=== PATIENT | male | born 1945 | race Caucasian/White ===

== ENCOUNTER → 2016-10-23 | Outpatient (CLI) | payer OTHER ==
[~2016-10-23] MED LIST: CALCIUM 500 +1 EACH PO; CELEXA20 MG PO; FIORICET WI1 CAPSULE PO; MAALOX/LIDOCAINE; OXAYDO5 MG PO; OXYCODONE-ACET1 EACH PO; PROSCAR5 MG PO; VITAMIN B122500 MCG PO; VITAMIN D31000 UNIT PO
== END | disposition home or self-care (01) ==
LOC: NUC 11:00
DX: C61 Malignant neoplasm of prostate (principal); C79.51 Secondary malignant neoplasm of bone; R97.21 Rising PSA following treatment for malignant neoplasm of prostate
CPT/HCPCS: 78306; A9503

== ENCOUNTER → 2017-04-24 | Outpatient (CLI) | payer OTHER | END | disposition home or self-care (01) | LOC: NUC 10:43 | DX: C79.51 Secondary malignant neoplasm of bone (principal) | CPT/HCPCS: 78306; A9503 ==

== ENCOUNTER → 2017-10-23 | Outpatient (CLI) | payer OTHER | END | disposition home or self-care (01) | LOC: NUC 10:00 | DX: C79.51 Secondary malignant neoplasm of bone (principal); C61 Malignant neoplasm of prostate; Z19.1 Hormone sensitive malignancy status; Z92.3 Personal history of irradiation | CPT/HCPCS: 78306; A9503 ==